=== PATIENT | female | born 1995 | race Caucasian/White ===

== ENCOUNTER → 2017-06-13 | Outpatient (CLI) | payer OTHER ==
[~2017-06-13] MED LIST: FOLIC ACID1 MG PO; FURADANTIN5 MG/ML PO; LOSARTAN POTASS25 MG PO; MIRALAX17 GM PO; PREVACID SOLUTA30 MG PO; SERTRALINE HCL25 MG PO; VALPROIC A250 MG/5 M GT; [UNRECOGNIZED DRUG - OTHER] GT
== END | disposition home or self-care (01) ==
LOC: AMB 13:29
DX: Z43.1 Encounter for attention to gastrostomy (principal); F84.2 Rett's syndrome; R62.7 Adult failure to thrive
CPT/HCPCS: 99212

== ENCOUNTER → 2017-07-14 | Outpatient (CLI) | payer OTHER | END | disposition home or self-care (01) | LOC: AMB 07-11 14:30 | PROC: 0DH67UZ Insertion of Feeding Device into Stomach, Via Natural or Artificial Opening (ICD-10-PCS; principal; 2017-07-14) | DX: R13.10 Dysphagia, unspecified (principal); F84.2 Rett's syndrome; F79 Unspecified intellectual disabilities | CPT/HCPCS: 99212 ==

== ENCOUNTER 2017-09-10 09:41 | Inpatient (IN) | payer OTHER ==
[~2017-09-10] VITALS: Ht 129.5 cm; Wt 23.5 kg
[~2017-09-10 09:41] MED LIST changes: +DEPAKENE250 MG PO; -VALPROIC A250 MG/5 M GT
[2017-09-10 11:26] LABS: BASOPHIL (%) 0.3 % (0-1); EOSINOPHIL (%) 1.1 % (0-5); EOSINOPHIL COUNT 0.1 K/uL (0-0.3); HEMATOCRIT 53.7 % (36.0-46.0); HEMOGLOBIN 17.7 G/DL (11.9-15.5); IMMATURE GRANULOCYTE (%) 0.4 % (0.0-0.7); LYMPHOCYTE (%) 20.3 % (15-42); LYMPHOCYTE COUNT 1.5 K/uL (1.0-2.8); MCH 30.3 PG (29.0-34.0); MONOCYTE (%) 7.8 % (3-12); MONOCYTE COUNT 0.6 K/uL (0-0.8); NEUTROPHIL (%) 70.1 % (45-76); NRBC (%) 0.3 /100 WBC (0-0); RBC DIS.WIDTH-CV 12.1 % (11.8-14.6); RBC DIS.WIDTH-SD 40.5 % (39-53); RED BLOOD COUNT 5.84 M/uL (3.80-5.20); WHITE BLOOD COUNT 7.2 K/uL (4.1-10.2)
[2017-09-10 11:37] LABS: ALBUMIN 4.9 g/dL (3.2-4.8); CHLORIDE 96 mEq/L (99-109); POTASSIUM 5.2 mEq/L (3.7-5.4); SODIUM 138 mEq/L (136-147)
[2017-09-10 11:38] LABS: MAGNESIUM 2.4 mg/dL (1.3-2.7)
[2017-09-10 11:40] LABS: GLUCOSE 75 mg/dL (70-99); TOTAL PROTEIN 10.1 g/dL (6.4-8.3)
[2017-09-10 11:42] LABS: TOTAL BILIRUBIN 0.7 mg/dL (0.0-1.0)
[2017-09-10 11:43] LABS: ALKALINE PHOSPHATASE 133 IU/L (3-129)
[2017-09-10 11:44] LABS: CREATININE 1.3 mg/dL (0.6-1.3); GFR ESTIMATE (CALCULATED) 55 mL/min/
[2017-09-10 11:45] LABS: AST (GOT) 22 IU/L (2-34); UREA NITROGEN (BUN) 29 mg/dL (9-23)
[2017-09-10 11:46] LABS: ALT (GPT) 17 IU/L (3-49)
[2017-09-10 11:47] LABS: LIPASE 54 U/L (1.0-51.0)
[2017-09-10 11:59] LABS: PLATELET COUNT 275 K/uL (156-360)
[2017-09-10 12:00] LABS: PLAT.SUFFICIENCY ADEQUATE
[2017-09-10 12:53] LABS: APPEARANCE CLOUDY ((CLEAR)); BILIRUBIN NEGATIVE; BLOOD MODERATE; COLOR YELLOW ((YELLOW)); GLUCOSE (STRIP) NEGATIVE; KETONES 5; LEUKOCYTES LARGE; NITRITE NEGATIVE; PROTEIN (STRIP) 30; SPECIFIC GRAVITY 1.006 (1.000-1.030); UROBILINOGEN 0.2 MG/DL (0.2-1.0)
[2017-09-10 13:25] LABS: BACTERIA 3+ /HPF; EPITHELIAL CELLS RARE /HPF; MUCUS NONE SEEN /LPF; WHITE BLOOD CELLS 20-30 /HPF (0-5)
[2017-09-10] MEDS ORDERED: PRILOSEC20 MG PO (14:31)
[2017-09-10] MEDS ORDERED: CHILDREN'S ACET80 M2 PO (14:32)
[2017-09-10] MEDS ORDERED: [UNRECOGNIZED DRUG - OTHER] PO (14:36)
[2017-09-10 16:33] VITALS: BP 109/68
[2017-09-10 19:45] VITALS: BP 113/62
[2017-09-11 05:04] VITALS: BP 113/80
[2017-09-11 05:50] LABS: HEMATOCRIT 36.9 % (36.0-46.0); MCH 29.4 PG (29.0-34.0); MCHC 32.5 G/DL (30.0-36.0); MCV 90.4 FL (83-99); PLATELET COUNT 211 K/uL (156-360); RBC DIS.WIDTH-CV 12.1 % (11.8-14.6); RBC DIS.WIDTH-SD 39.6 % (39-53); RED BLOOD COUNT 4.08 M/uL (3.80-5.20); WHITE BLOOD COUNT 4.2 K/uL (4.1-10.2)
[2017-09-11 06:13] LABS: CHLORIDE 111 MEQ/L (99-109); SODIUM 143 MEQ/L (136-147); UREA NITROGEN (BUN) 17 mg/dL (9-23)
[2017-09-11 06:15] LABS: CREATININE 0.8 MG/DL (0.6-1.3); GFR ESTIMATE (CALCULATED) > 59 mL/min/; GLUCOSE 122 mg/dL (70-99); POTASSIUM 3.7 MEQ/L (3.7-5.4)
[2017-09-11 08:15] VITALS: BP 123/77
[2017-09-11] MEDS ORDERED: OMNICEF50 MG/1 ML PO (10:31)
[2017-09-11 10:50] VITALS: BP 137/72
[2017-09-11 15:59] VITALS: BP 141/6
[2017-09-11 19:42] VITALS: BP 103/53
[2017-09-11 23:41] VITALS: BP 99/58
[2017-09-12 06:52] LABS: HEMATOCRIT 37.5 % (36.0-46.0); HEMOGLOBIN 12.2 G/DL (11.9-15.5); MCH 29.6 PG (29.0-34.0); MCHC 32.5 G/DL (30.0-36.0); PLATELET COUNT 219 K/uL (156-360); RBC DIS.WIDTH-CV 12.3 % (11.8-14.6); RBC DIS.WIDTH-SD 40.2 % (39-53); RED BLOOD COUNT 4.12 M/uL (3.80-5.20); WHITE BLOOD COUNT 4.4 K/uL (4.1-10.2)
[2017-09-12 08:14] VITALS: BP 105/72
[2017-09-12] MEDS ORDERED: OMNICEF50 MG/1 ML PO (09:57)
[2017-09-12 15:26] VITALS: BP 162/85
== END 2017-09-12 16:41 | disposition home or self-care (01) | DRG 690 ==
LOC: EME 09:41 → EDOF 14:51 → 5WEST 14:51 → ENRESERV 14:54 → 5WEST 15:46
PROVIDERS: Emergency Medicine; Hospitalist; Internal Medicine
DX: N39.0 Urinary tract infection, site not specified (principal); E83.59 Other disorders of calcium metabolism; Z93.1 Gastrostomy status; F84.2 Rett's syndrome; N29 Other disorders of kidney and ureter in diseases classified elsewhere; K21.9 Gastro-esophageal reflux disease without esophagitis; E86.0 Dehydration; Z68.1 Body mass index [BMI] 19.9 or less, adult; D64.9 Anemia, unspecified; G40.909 Epilepsy, unspecified, not intractable, without status epilepticus
CPT/HCPCS: 71046; 74019; 76705; 80048; 80053; 81003; 83605; 83690; 83735; 85025; 85027; 87040; 87086; 99281; 99285; G0378; J0696; J1644; J7042

== ENCOUNTER 2017-09-18 06:39 | Emergency (ER) | payer OTHER ==
[~2017-09-18] VITALS: Ht 121.9 cm; Wt 25.4 kg
[~2017-09-18 06:39] MED LIST changes: +CHILDREN'S ACET80 M2 PO; +OMNICEF50 MG/1 ML PO; +PRILOSEC20 MG PO; +[UNRECOGNIZED DRUG - OTHER] PO
[2017-09-18 09:44] LABS: HEMOGLOBIN 13.4 G/DL (11.9-15.5); MCH 30.5 PG (29.0-34.0); MCHC 33.5 G/DL (30.0-36.0); MCV 91.1 FL (83-99); PLATELET COUNT 246 K/uL (156-360); RBC DIS.WIDTH-CV 12.5 % (11.8-14.6); RBC DIS.WIDTH-SD 41.1 % (39-53); RED BLOOD COUNT 4.39 M/uL (3.80-5.20); WHITE BLOOD COUNT 6.9 K/uL (4.1-10.2)
[2017-09-18 09:52] LABS: ALBUMIN 3.9 g/dL (3.2-4.8); CHLORIDE 104 mEq/L (99-109); POTASSIUM 3.8 mEq/L (3.7-5.4); SODIUM 145 mEq/L (136-147)
[2017-09-18 09:54] LABS: GLUCOSE 99 mg/dL (70-99); TOTAL PROTEIN 7.6 g/dL (6.4-8.3)
[2017-09-18 09:56] LABS: TOTAL BILIRUBIN 0.3 mg/dL (0.0-1.0)
[2017-09-18 09:58] LABS: ALKALINE PHOSPHATASE 83 IU/L (3-129); CREATININE 0.8 mg/dL (0.6-1.3); GFR ESTIMATE (CALCULATED) > 59 mL/min/
[2017-09-18 09:59] LABS: UREA NITROGEN (BUN) 15 mg/dL (9-23)
[2017-09-18 10:00] LABS: AST (GOT) 17 IU/L (2-34)
[2017-09-18 10:01] LABS: ALT (GPT) 9 IU/L (3-49)
[2017-09-18 12:42] LABS: APPEARANCE CLEAR ((CLEAR)); BILIRUBIN NEGATIVE; BLOOD SMALL; COLOR YELLOW ((YELLOW)); GLUCOSE (STRIP) NEGATIVE; KETONES NEGATIVE; LEUKOCYTES LARGE; NITRITE NEGATIVE; PROTEIN (STRIP) 30; SPECIFIC GRAVITY 1.009 (1.000-1.030); UROBILINOGEN 0.2 MG/DL (0.2-1.0)
[2017-09-18 13:02] LABS: BACTERIA RARE /HPF; EPITHELIAL CELLS RARE /HPF; HYALINE CASTS 0-5 /LPF; MUCUS TRACE /LPF; UCUL ADDED? YES; WHITE BLOOD CELLS TNTC /HPF (0-5)
[2017-09-18] MEDS ORDERED: MACROBID100 MG PO (13:31)
[2017-09-18] MEDS ORDERED: BENTYL20 MG PO (13:31)
[2017-09-18 13:44] VITALS: BP 117/61
== END 2017-09-18 14:03 | disposition home or self-care (01) ==
LOC: EME 06:39
PROVIDERS: Nurse Practitioner Family
DX: N39.0 Urinary tract infection, site not specified (principal); K52.1 Toxic gastroenteritis and colitis; T36.95XA Adverse effect of unspecified systemic antibiotic, initial encounter; F84.2 Rett's syndrome; Z93.1 Gastrostomy status
CPT/HCPCS: 80053; 81003; 85027; 87086; 99281; 99285